=== PATIENT | male | born 1970 | race Caucasian/White ===

== ENCOUNTER 2021-03-30 14:41 | Emergency (ER) | payer MEDICARE ==
[2021-03-30] MEDS ORDERED: Cefepime 2 GM VIAL ONE (15:39)
[2021-03-30] MEDS ORDERED: Sodium Chloride 0.9% 100 ML ONE (15:39)
[2021-03-30 16:25] LABS: SARS-CoV-2 NAA Rapid Test Not Detected (NotDetected)
== END 2021-03-30 16:07 ==
LOC: BURERS 14:41
DX: T17.508A Unspecified foreign body in bronchus causing other injury, initial encounter (principal); Z20.822 Contact with and (suspected) exposure to COVID-19; E78.5 Hyperlipidemia, unspecified; F17.200 Nicotine dependence, unspecified, uncomplicated
CPT/HCPCS: 71046; 96374; J0692; J3490; U0002